=== PATIENT | male | born 1990 | race African-American/Black ===

== ENCOUNTER 2019-10-25 10:06 | Emergency (ER) | payer OTHER ==
[~2019-10-25] VITALS: Ht 175.3 cm; Wt 74.5 kg
--- NOTE | 2019-10-25 11:57 | REP ---
Left knee five views : There is no fracture or dislocation. Mineralization and joint spaces are normal. There are no calcifications or foreign bodies. There is no hemarthrosis. Impression: Negative left knee . Electronically Signed by Da Fernandez MD 10/25/2019 11:49 A
--- NOTE | 2019-10-25 11:57 | REP ---
Left shoulder three views: There are no comparisons. There is no fracture or dislocation. Mineralization is normal. There are no calcifications or foreign bodies. I suspect there has been resection of the distal clavicle. This should be correlated with clinical history. Electronically Signed by Da Fernandez MD 10/25/2019 11:48 A
[2019-10-25] MEDS ORDERED: NAPR-885 PO (12:06)
[2019-10-25] MEDS ORDERED: CYCL10TA PO (12:06)
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
[2019-10-25 12:11] VITALS: BP 120/74
== END 2019-10-25 12:21 | disposition home or self-care (01) ==
LOC: M ED 10:06
DX: S83.92XA Sprain of unspecified site of left knee, initial encounter (principal); S43.402A Unspecified sprain of left shoulder joint, initial encounter; M62.830 Muscle spasm of back; V49.40XA Driver injured in collision with unspecified motor vehicles in traffic accident, initial encounter

== ENCOUNTER 2020-11-23 09:19 | Emergency (ER) | payer OTHER ==
[~2020-11-23] VITALS: Ht 175.3 cm; Wt 78.4 kg
[2020-11-23 09:19] VITALS: BP 134/71
[~2020-11-23 09:19] MED LIST: CYCL-707 PO; NAPR-885 PO
[2020-11-23] MEDS ORDERED: VALA1TAB5 PO (10:37)
== END 2020-11-23 10:43 | disposition home or self-care (01) ==
LOC: M ED 09:19
DX: B00.1 Herpesviral vesicular dermatitis (principal)

== ENCOUNTER 2020-11-27 22:52 | Emergency (ER) | payer OTHER ==
[~2020-11-27] VITALS: Ht 175.3 cm; Wt 76.7 kg
[~2020-11-27 22:52] MED LIST changes: +VALA1TAB5 PO
[2020-11-28 00:41] VITALS: BP 134/75
[2020-12-01 19:09] LABS: HSV TYPE I IgG SPECIFIC 5.15 index (0.00-0.90); HSV TYPE I IgM AB <1:10 titer (<1:10); HSV TYPE II IgG SPECIFIC <0.91 index (0.00-0.90); HSV TYPE II IgM ABY <1:10 titer (<1:10); HSV-1 DNA Negative (Negative); HSV-2 DNA Negative (Negative)
== END 2020-11-28 00:43 | disposition home or self-care (01) ==
LOC: M ED 22:52
DX: Z11.3 Encounter for screening for infections with a predominantly sexual mode of transmission (principal); B00.1 Herpesviral vesicular dermatitis

== ENCOUNTER 2021-03-17 00:33 | Emergency (ER) | payer OTHER | END 2021-03-17 04:03 | disposition left against medical advice (07) | LOC: M ED 00:33 | DX: Z53.21 Procedure and treatment not carried out due to patient leaving prior to being seen by health care provider (principal) ==

== ENCOUNTER 2022-03-10 06:25 | Emergency (ER) | payer OTHER ==
[~2022-03-10] VITALS: Ht 175.3 cm; Wt 77.7 kg
[2022-03-10] MEDS ORDERED: CYCL-707 PO (07:58)
[2022-03-10] MEDS ORDERED: NAPR-837 PO (07:58)
[2022-03-10 08:16] VITALS: BP 110/75
== END 2022-03-10 08:18 | disposition home or self-care (01) ==
LOC: M ED 06:25
DX: S29.012A Strain of muscle and tendon of back wall of thorax, initial encounter (principal); X58.XXXA Exposure to other specified factors, initial encounter; Y92.89 Other specified places as the place of occurrence of the external cause; M62.830 Muscle spasm of back; F17.200 Nicotine dependence, unspecified, uncomplicated

== ENCOUNTER 2022-05-29 18:31 | Emergency (ER) | payer OTHER ==
[~2022-05-29 18:31] MED LIST changes: +NAPR-837 PO
[2022-05-29 18:32] VITALS: BP 125/69
[2022-05-29] MEDS ORDERED: MUPIROCIN 2% OINT 22 GM TUBE TOP ONE (19:10)
[2022-05-29] MEDS ORDERED: MUPI30CR TOP (19:14)
== END 2022-05-29 19:22 | disposition home or self-care (01) ==
LOC: M ED 18:31
DX: L01.00 Impetigo, unspecified (principal); F17.200 Nicotine dependence, unspecified, uncomplicated